=== PATIENT | female | born 1945 | race Caucasian/White ===

== ENCOUNTER 2022-09-25 13:08 | Inpatient (IN) | payer MEDICARE, BC ==
[~2022-09-25] VITALS: Ht 157.5 cm; Wt 53.7 kg
--- NOTE | 2022-09-25 13:16 | NUR ---
BIB RA[facility], TRIPPED ON THE DOORWAY AND FELL. PT HAS RIGHT HIP PAIN SLIGHT ROTATION (OUTWARD) AND SHORTENING. PT VITALS ARE WITHIN NORMAL LIMITS. AWAITING MD SCHULTZ.
[2022-09-25] MEDS ORDERED: ACETAMINOPHEN ES 500 MG TABLET PO ONE (13:30)
[2022-09-25] MEDS ORDERED: ACETAMINOPHEN ES 500 MG TABLET ONE (13:31)
--- NOTE | 2022-09-25 13:48 | NUR ---
X RAY AT BEDSIDE
[2022-09-25] MEDS ORDERED: ASPI-1420 PO (14:15)
[2022-09-25] MEDS ORDERED: FLUT10.62 INH (14:15)
[2022-09-25] MEDS ORDERED: LEVO88TA71 PO (14:15)
[2022-09-25] MEDS ORDERED: CHOL100043 PO (14:15)
[2022-09-25] MEDS ORDERED: MONT10TA22 PO (14:15)
[2022-09-25] MEDS ORDERED: METF-837 PO (14:15)
[2022-09-25] MEDS ORDERED: FERR325T23 PO (14:15)
[2022-09-25] MEDS ORDERED: SITA100T PO (14:15)
[2022-09-25] MEDS ORDERED: FLUT16SP16 (14:15)
[2022-09-25] MEDS ORDERED: FLUT1BLS IH (14:15)
[2022-09-25] MEDS ORDERED: VENL150C58 PO (14:15)
[2022-09-25] MEDS ORDERED: CITA20TA16 PO (14:15)
[2022-09-25] MEDS ORDERED: ATOR40TA PO (14:15)
[2022-09-25] MEDS ORDERED: ONDANSETRON HCL/PF - ER 4 MG/2 ML VIAL IV ONE (15:00)
[2022-09-25] MEDS ORDERED: MORPHINE SULFATE INJ 2 MG/ML DISP.SYRIN IV ONE ×3 (15:00→19:00)
[2022-09-25] MEDS ORDERED: ONDANSETRON HCL/PF 4 MG/2 ML VIAL ONE (15:14)
[2022-09-25] MEDS ORDERED: MORPHINE SULFATE INJ 4 MG/ML DISP.SYRIN ONE ×3 (15:14→18:56)
--- NOTE | 2022-09-25 15:30 | NUR ---
PAGED DR. BARRAGAN AWAITING A CALL BACK
--- NOTE | 2022-09-25 15:40 | NUR ---
COVID SWAB TAKEN AND SENT TO LAB
--- NOTE | 2022-09-25 15:42 | NUR ---
COVID TEST COLLECTED AND SENT
--- NOTE | 2022-09-25 15:45 | NUR ---
PT TAKEN TO CT [facility]IA [facility]
[2022-09-25 15:56] LABS: BASOPHILS % (AUTO) 0.2 % (0.0-2.0); EOSINOPHILS % (AUTO) 1.4 % (0.0-6.0); HEMATOCRIT 39 % (33-45); HEMOGLOBIN 12.8 g/dL (11.5-14.8); LYMPHOCYTES # (AUTO) 1.5 K/uL (0.8-4.8); LYMPHOCYTES % (AUTO) 13.7 % (20.0-44.0); MEAN CORPUSCULAR HGB CONC 33 g/dl (31.0-36.0); MEAN CORPUSCULAR VOLUME 91 fL (82-100); MONOCYTES # (AUTO) 0.6 K/uL (0.1-1.30); MONOCYTES % (AUTO) 5.7 % (2.0-12.0); NEUTROPHILS # (AUTO) 8.7 K/uL (1.8-8.9); PLATELET COUNT (AUTO) 288 K/uL (150-450); RED BLOOD CELL COUNT(AUTO) 4.34 MIL/uL (4.0-5.2)
[2022-09-25 16:14] LABS: CALCIUM, SERUM 9.1 mg/dL (8.5-10.1); CREATININE 0.8 mg/dL (0.6-1.3)
[2022-09-25] MEDS ORDERED: INSU100I24 SQ (16:28)
[2022-09-25] MEDS ORDERED: VENL75CA62 PO (16:28)
--- NOTE | 2022-09-25 16:52 | NUR ---
TELLY- SON [phone]
--- NOTE | 2022-09-25 19:41 | NUR ---
Timbo AOx4, able toexpress concerns. No signs of distress or discomfort, states it is hard for her to get in a comfortable position due to her fall. Discussed plan of care, timbo verbalized agreement.
--- NOTE | 2022-09-25 19:51 | NUR ---
Report given to Luz LOPEZ 3W, patient ready for trasfer.
[2022-09-25 20:30] VITALS: BP 138/79
[2022-09-25] MEDS ORDERED: ACETAMINOPHEN 325 MG TABLET PO PRN (20:30)
[2022-09-25] MEDS ORDERED: IV NS 0.9% 1,000 ML IV PRN (20:30)
[2022-09-25] MEDS ORDERED: ONDANSETRON HCL/PF 4 MG/2 ML VIAL IVP PRN (20:30)
[2022-09-25] MEDS ORDERED: DEXTROSE 50%-WATER 50 ML DISP.SYRIN IV PRN (20:30)
[2022-09-25] MEDS: MORPHINE SULFATE INJ 2 MG/ML DISP.SYRIN IV PRN (21:08)
--- NOTE | 2022-09-25 21:11 | NUR ---
bill rn note-- pain management pateint c/o 01/04 pain on her rt. hip. Given Morphine 2mg as ordered PRN. will re-assess.
[2022-09-25] MEDS: PANTOPRAZOLE 40 MG VIAL IV SCH (21:33)
[2022-09-25] MEDS: BLOOD SUGAR DIAGNOSTIC 1 EACH STRIP IN SCH (21:42)
[2022-09-25] MEDS: INSULIN REGULAR, HUMAN 100 UNIT/ML 3 ML VIAL SQ PRN (21:43)
[2022-09-26] VITALS (7 sets, daily range): BP systolic 103–148; BP diastolic 52–91
[2022-09-26] MEDS: ALBUTEROL FS 2.5 MG/3 ML VIAL.NEB NEB SCH ×5 (01:30→19:30)
--- NOTE | 2022-09-26 02:04 | NUR ---
ADMISSION NOTES pATIENT BROUGHT UP IN UNIT AT 1999 ACCOMPANIED BY 1 ER PERSONNEL VIA [facility]. PATIENT IS A/OX4. NO S/S OF APPARENT DISTRESS ON ROOM AIR. C/O 9/10 PAIN ON HER RT. HIP S/P FALL. PER PATIENT, SHE HAD AN ADVANCED DIRECTIVE AND THAT SHE IS DNR/DNI, TO BRING PAPERWORKS, AGREEABLE TO BE FULL CODE FOR NOW UNTIL ADVANCED DIRECTIVE ON FILE. PATIENT HAD L. AC #22G INTACT AND PATENT-- STARTED ON NS @75MLS/HR ORDERED. NEW ID BAND ON PATIENT. BELONGINGS CHECKED AND SIGNED FOR. SKIN ASSESSMENT DONE.PATIENT DENIES SMOKING NOR DRINKING ALCOHOL. AND IS UP-TO-DATE WITH HER VACCINATIONS, INCLUDING COVID. PATIENT ORIENTED IN THE UNIT AND THE USE OF CALL LIGHT, V/S TAKEN AND CHARTED. SAFETY IN PLACE-- BED IN LOWEST, LOCKED POSITION, CALL LIGHT WITHIN REACH, RAILS UP x2. PATIENT IS FOR ORTHOPEDIC CONSULT. AWARE OF NPO STATUS. WILL CONTINUE WITH PAIN MANAGEMENT FOR PATIENT.
[2022-09-26] MEDS: MORPHINE SULFATE INJ 2 MG/ML DISP.SYRIN IV PRN ×3 (04:03→12:16)
--- NOTE | 2022-09-26 04:03 | NUR ---
noc rn note- pain management Patient c/o 12/04 pain on her rt. hip. Given morphine 2mg as ordered PRN. will re-assess.
--- NOTE | 2022-09-26 05:06 | NUR ---
noc rn note After 8 hours being admitted in unit patient has no urine output. per patient she is trying to pee and to quote "I'm telling my mind to pee but it cannot". feels fullness. hard bladder upon palpation. bladder scan showing 509 ml of uo. patient zeny remember if she has any history of urinary retention. massaged Selina Coelho and hospitalist ordered Quiles catheter insertion. inserted 16fr. 500mls out right away. will cont. to monitor,.
--- NOTE | 2022-09-26 05:39 | NUR ---
EKG Completed, results given to geomorphology teacher Morenita. RT was not aware patient came up to floor after report with randy chu due.
[2022-09-26 06:27] LABS: BASOPHILS % (AUTO) 0.4 % (0.0-2.0); EOSINOPHILS % (AUTO) 3.7 % (0.0-6.0); HEMATOCRIT 39 % (33-45); HEMOGLOBIN 12.5 g/dL (11.5-14.8); LYMPHOCYTES # (AUTO) 0.9 K/uL (0.8-4.8); LYMPHOCYTES % (AUTO) 9.8 % (20.0-44.0); MEAN CORPUSCULAR HGB CONC 32 g/dl (31.0-36.0); MEAN CORPUSCULAR VOLUME 93 fL (82-100); MONOCYTES # (AUTO) 0.6 K/uL (0.1-1.30); MONOCYTES % (AUTO) 6.1 % (2.0-12.0); NEUTROPHILS # (AUTO) 7.7 K/uL (1.8-8.9); PLATELET COUNT (AUTO) 255 K/uL (150-450); RED BLOOD CELL COUNT(AUTO) 4.22 MIL/uL (4.0-5.2); WHITE BLOOD COUNT (AUTO) 9.6 K/uL (4.3-11.0)
[2022-09-26] MEDS: BLOOD SUGAR DIAGNOSTIC 1 EACH STRIP IN SCH ×4 (06:46→22:14)
[2022-09-26] MEDS: INSULIN REGULAR, HUMAN 100 UNIT/ML 3 ML VIAL SQ PRN ×2 (06:46→22:15)
[2022-09-26 06:48] LABS: CALCIUM, SERUM 8.7 mg/dL (8.5-10.1); CREATININE 0.8 mg/dL (0.6-1.3); MAGNESIUM 1.9 mg/dL (1.8-2.4); PHOSPHORUS 4.6 mg/dL (2.5-4.9); POTASSIUM 4.4 mmol/L (3.5-5.1)
--- NOTE | 2022-09-26 07:15 | NUR ---
bill rn closing note Patient in bed, a/ox2, no s/s of apparent distress on 1lpm of o2 via nc. pain managed with medication. all needs attended. all scheduled medications administered. safety kept in place throughout shift. will endorse to morning shift rn for continuity of patient care. Addendum: 09/26/22 at 0722 by BRIGIDO RICKETTS RN disregard. wrong patient.
--- NOTE | 2022-09-26 07:23 | NUR ---
MS RN OPENING NOTES RECEIVED PATIENT RESTING IN BED, ALERT/ ORIENTED X 4, ON ROOM AIR WITH EVEN AND UNLABORED BREATHING. WITH IV ACCESS ON LEFT AC G#22 WITH NS @ 75ML /HR . IV SITE PATENT AND NO SIGNS OF INFILTRATION. RESIDENT ON NPO SINCE POST MIDNIGHT FOR POSSIBLE SURGERY R/T HIP FRACTURE. SAFETY MEASURES PROVIDED: KEEP BED AT LOW , CALL LIGHT WITHIN EASILY REACH, AND BED LOCK. WILL CONTINUE WITH THE PLAN OF CARE.
--- NOTE | 2022-09-26 07:23 | NUR ---
noc rn closing note Patient in bed, a/ox4, forgetful, no s/s of apparent distress on room air. pain managed with medication. all needs attended. all scheduled medications administered. safety kept in place throughout shift. Endorsed to morning shift glendy Rodarte for continuity of patient care. Patient is for Ortho consult.
[2022-09-26] MEDS: BUDESONIDE RESPULE INH 0.5 MG/2 ML AMPUL.NEB NEB SCH ×2 (07:34→15:39)
[2022-09-26] MEDS: LEVOTHYROXINE SODIUM 88 MCG TABLET PO SCH (08:13)
[2022-09-26] MEDS: PANTOPRAZOLE 40 MG VIAL IV SCH (08:13)
[2022-09-26] MEDS: LINAGLIPTIN 5 MG TABLET PO SCH (08:14)
[2022-09-26] MEDS: CITALOPRAM HYDROBROMIDE 10 MG TABLET PO SCH (08:14)
[2022-09-26] MEDS: VENLAFAXINE XR 150 MG CAP.SR.24H PO SCH (08:14)
[2022-09-26] MEDS: ASPIRIN EC 81 MG TABLET.DR PO SCH (08:15)
[2022-09-26] MEDS: FLUTICASONE PROPIONATE 16 GM BOTTLE NS SCH (08:19)
[2022-09-26] MEDS ORDERED: FERROUS SULFATE (325 MG) 325 MG/TAB TABLET PO SCH (09:00)
[2022-09-26] MEDS ORDERED: FLUTICASONE/VILANTEROL 1 EACH BLST.W.DEV IH SCH (09:00)
[2022-09-26 10:38] LABS: THYROID STIMULATING HORMONE 2.037 uIU/mL (0.358-3.74)
[2022-09-26] MEDS ORDERED: IV D5/ 0.9% NACL 1,000 ML IV ONE (11:00)
[2022-09-26] MEDS ORDERED: BUPIVACAINE 0.25% 75 MG/30 ML VIAL ONE (15:07)
[2022-09-26] MEDS ORDERED: ANESTHESIA TRAY IN PYXIS 1 EA TRAY MC ONE (15:07)
[2022-09-26] MEDS ORDERED: KETAMINE HCL (500MG/10ML) 50 MG/ML VIAL ONE (17:54)
[2022-09-26] MEDS ORDERED: HYDROMORPHONE INJ 2 MG/ML DISP.SYRIN ONE (17:54)
[2022-09-26] MEDS ORDERED: FENTANYL PF 100MCG/2ML AMPUL ONE (17:54)
[2022-09-26] MEDS: ATORVASTATIN 40 MG TABLET PO SCH (18:00)
[2022-09-26] MEDS: MONTELUKAST SODIUM (10MG) 10 MG TABLET PO SCH (18:00)
[2022-09-26] MEDS: VENLAFAXINE XR 75 MG CAP.SR.24H PO SCH (18:00)
--- NOTE | 2022-09-26 18:00 | NUR ---
MS RN CLOSING NOTES PATIENT TRANSFERRED TO OR FOR SCHEDULED SURGERY OF RIGHT HIP HEMIARTHROPLASTY VERSUS RIGHT HIP TOTAL ARTHROPLASTY. PATIENT IN STABLE CONDITION, NOT IN ANY FORM OF DISTRESS. WILL ENDORSE TO INCOMING NURSE ACCORDINGLY.
[2022-09-26] MEDS ORDERED: HYDROCORTISONE SOD SUCCINATE 100 MG/2 ML VIAL ONE (18:04)
[2022-09-26] MEDS ORDERED: CLINDAMYCIN 900 MG/6 ML VIAL ONE (18:05)
[2022-09-26] MEDS ORDERED: TRANEXAMIC ACID 1,000 MG/10 ML VIAL ONE (18:54)
[2022-09-26] MEDS ORDERED: POLYMYXIN B SULFATE 500,000 UNITS ONE (18:54)
[2022-09-26] MEDS ORDERED: BUPIVACAINE 0.5 % PF 150 MG/30 ML VIAL ONE (18:54)
[2022-09-26] MEDS ORDERED: DOCUSATE SODIUM 100 MG CAPSULE PO PRN (20:30)
[2022-09-26] MEDS ORDERED: HYDROCODONE/APAP 5/325MG TABLET PO PRN (20:30)
[2022-09-26] MEDS ORDERED: MORPHINE SULFATE INJ 4 MG/ML DISP.SYRIN IV PRN (20:30)
[2022-09-26] MEDS ORDERED: ACETAMINOPHEN 325 MG TABLET PO PRN (20:30)
[2022-09-26] MEDS ORDERED: DOCUSATE SODIUM 250 MG CAPSULE PO PRN (20:30)
[2022-09-26] MEDS: ENOXAPARIN SODIUM 40 MG/0.4 ML DISP.SYRIN SQ SCH (21:00)
[2022-09-26] MEDS ORDERED: SENNOSIDES 8.6 MG TABLET PO PRN ×2 (21:00)
[2022-09-26] MEDS ORDERED: ONDANSETRON HCL/PF 4 MG/2 ML VIAL IVP PRN (21:00)
[2022-09-26] MEDS ORDERED: BISACODYL SUPP (10 MG) 10 MG/SUPP.RECT SUPP.RECT RC PRN (21:00)
--- NOTE | 2022-09-26 21:00 | NUR ---
noc rn note IV D5NS @75mls/hr resumed as ordered by Surgeon.
--- NOTE | 2022-09-26 21:00 | NUR ---
noc rn note Patient back in unit at this time, still groggy from anaesthesia patient is alert and answer simple questions no s/s of apparent distress, put in 2lpm of o2 via nc-- patient encouraged deep breathing. denies pain at this time. dressing on rt. hip clean, dry, intact. V/S as follows: 103/53, hr118 92% room air, rr- 17, temp. 98.4. will continue to monitor q 15 for the next hour.
--- NOTE | 2022-09-26 21:30 | NUR ---
noc rn note- non-admin patient s/p hemiarthroplasty without it being 12 hours hence Lovenox non administered.
[2022-09-26 21:39] LABS: HEMOGLOBIN 10.9 g/dL (11.5-14.8)
--- NOTE | 2022-09-26 22:15 | NUR ---
noc rn note- non admin blood sugar 212mg/dL per patient she doesn't take insulin at night and d/t patient being under anaesthesia still and not eating, insulin non-administered. will continue to monitor.
[2022-09-27] MEDS: ALBUTEROL FS 2.5 MG/3 ML VIAL.NEB NEB SCH ×4 (01:30→20:15)
[2022-09-27] MEDS: CLINDAMYCIN 600 MG in IV D5W 50 ML IV SCH ×3 (02:16→17:17)
--- NOTE | 2022-09-27 03:30 | NUR ---
noc rn note-pain management patient c/o 9/10 pain on her rt. hip s/p surgery. given Morphine 4mg as ordered PRN. will re-assess.
[2022-09-27] MEDS: MORPHINE SULFATE INJ 2 MG/ML DISP.SYRIN IV PRN (05:15)
--- NOTE | 2022-09-27 05:15 | NUR ---
noc rn note- pain management Morphine 2mg Q4 ineffective. patient still c/o 9/10 pain on her rt. hip surgery site. Given another dose of Morphine 2mg Q2 as ordered PRN for when Q4 ineffective. Patient teaching done about risk and benefits. Patient acknowledged. will re-assess.
[2022-09-27 07:00] VITALS: BP 140/76
[2022-09-27] MEDS: BLOOD SUGAR DIAGNOSTIC 1 EACH STRIP IN SCH ×4 (07:00→21:07)
[2022-09-27] MEDS: INSULIN REGULAR, HUMAN 100 UNIT/ML 3 ML VIAL SQ PRN ×4 (07:01→21:07)
[2022-09-27] MEDS: BUDESONIDE RESPULE INH 0.5 MG/2 ML AMPUL.NEB NEB SCH ×2 (07:23→15:56)
--- NOTE | 2022-09-27 07:30 | NUR ---
noc rn closing needs attended. Report given to Argelia morning shift RN for continuity of patient care.
[2022-09-27] MEDS: LEVOTHYROXINE SODIUM 88 MCG TABLET PO SCH (07:53)
[2022-09-27] MEDS: LINAGLIPTIN 5 MG TABLET PO SCH (09:49)
[2022-09-27] MEDS: PANTOPRAZOLE 40 MG VIAL IV SCH (09:49)
[2022-09-27] MEDS: VENLAFAXINE XR 150 MG CAP.SR.24H PO SCH (09:50)
[2022-09-27] MEDS: ASPIRIN EC 81 MG TABLET.DR PO SCH (09:50)
[2022-09-27] MEDS: CITALOPRAM HYDROBROMIDE 10 MG TABLET PO SCH (09:50)
[2022-09-27] MEDS: FLUTICASONE PROPIONATE 16 GM BOTTLE NS SCH (09:54)
--- NOTE | 2022-09-27 10:59 | NUR ---
MS RN OPENING NOTES RECEIVED PATIENT AWAKE IN BED, ALERT/ ORIENTED X 4, ON ROOM AIR WITH EVEN AND NON-LABORED BREATHING. WITH IV ACCESS ON LEFT AC G#22 WITH NS @ 75ML /HR . IV SITE PATENT, INTACT AND NO SIGNS OF INFILTRATION. WITH WANG CATHETER ON GRAVITY DRAIN, SAFETY MEASURES PROVIDED: BED AT LOWEST POSITION , CALL LIGHT WITHIN REACH, AND BED LOCKED. WILL CONTINUE WITH THE PLAN OF CARE.
--- NOTE | 2022-09-27 13:32 | NUR ---
RN NOTES: PATIENT STATED THAT MORPHINE IV IS NOT EFFECTIVE. INFORMED DR BARRAGAN ABOUT THE SITUATION. DR BARRAGAN ORDERED DC ALL MORPHINE IV PRN ORDERS AND START DILAUDID 0.5 MG IV Q 4HRS PRN FOR BREAK THROUGH PAIN. ORDERS NOTED AND CARRIED OUT. INFORMED PT.
[2022-09-27] MEDS: HYDROCODONE/APAP 5/325MG TABLET PO PRN (14:01)
--- NOTE | 2022-09-27 14:01 | NUR ---
PAIN MANAGEMENT: NORCO 5-325 (2TABS) PT COMPLAINED PAIN 7/10, NORCO 5-325 2 TABS GIVEN AND WITH SIPS OF WATER.
--- NOTE | 2022-09-27 14:31 | NUR ---
RN NOTES: PATIENT STATED SHE FELT BETTER WITH THE PAIN MEDS NORCO 5-325 2 TABS. INFORMED THE PATIENT TO LET US KNOW IF SHE STILL HAVE PAIN, PT VERBALIZED UNDERSTANDING.
[2022-09-27 16:00] VITALS: BP 120/61
[2022-09-27] MEDS: ATORVASTATIN 40 MG TABLET PO SCH (17:13)
[2022-09-27] MEDS: MONTELUKAST SODIUM (10MG) 10 MG TABLET PO SCH (17:14)
[2022-09-27] MEDS: VENLAFAXINE XR 75 MG CAP.SR.24H PO SCH (17:17)
--- NOTE | 2022-09-27 18:33 | NUR ---
MS RN CLOSING NOTES PATIENT AWAKE IN BED, ALERT/ ORIENTED X 4, ON ROOM AIR WITH EVEN AND NON-LABORED BREATHING. WITH IV ACCESS ON LEFT AC G#22. IV SITE PATENT, INTACT WITH NO SIGNS OF INFILTRATION. WITH COMPLAINTS OF PAIN ,PRN MEDS GIVEN.WITH WANG CATHETER,DRAINING TO CLEAR, YELLOW COLORED URINE. SAFETY MEASURES PROVIDED: BED AT LOWEST POSITION , CALL LIGHT WITHIN REACH, AND BED LOCKED. WILL ENDORSE TO PM SHIFT FOR ROSSY.
--- NOTE | 2022-09-27 19:46 | NUR ---
RN OPENING NOTE PATIENT AWAKE IN BED. A/OX4. NO S/S OF DISTRESS, BREATHING WITHOUT DIFFICULTY ON ROOM AIR. LAC #22 INTACT AND PATENT W/ D5NS 75ML/HR. SAFETY MEASURES IN PLACE: BED LOCKED AND AT LOWEST POSITION, RAILS UP X2, CALL HERBERT WITHIN REACH. WILL CONTINUE TO MONITOR PATIENT. Addendum: 09/27/22 at 1951 by DOROTHY RIOS RN CORRECTION: IV IS SL
[2022-09-27 20:00] VITALS: BP_SYST 119; BP_SYST 99; BP_DIAS 53; BP_DIAS 67
[2022-09-27] MEDS: ENOXAPARIN SODIUM 40 MG/0.4 ML DISP.SYRIN SQ SCH (21:05)
--- NOTE | 2022-09-27 21:35 | NUR ---
RN NOTE WANG CATH REMOVED PER POST-OP ORDERS. DISPOSED OF PROPERLY PER PROTOCOL. PATIENT EDUCATION GIVEN ON REASON FOR REMOVAL, AND NEW GOAL OF URINATING WITHOUT WANG IN PLACE. PATIENT O/W STABLE; WILL CONTINUE TO MONITOR PATIENT.
[2022-09-28] MEDS: HYDROMORPHONE 1 MG/1 ML DISP.SYRIN IV PRN (01:18)
[2022-09-28] MEDS: ALBUTEROL FS 2.5 MG/3 ML VIAL.NEB NEB SCH ×4 (01:30→20:29)
--- NOTE | 2022-09-28 02:20 | NUR ---
RT NOTE PATIENT REFUSING BREATHING TX AT THIS TIME. NO SIGNS OF RESPIRATORY DISTRESS NOTED. PATIENT IS TOLERATING ROOM AIR. WILL CONTINUE TO MONITOR PATIENT.
[2022-09-28 06:10] LABS: BASOPHILS % (AUTO) 0.3 % (0.0-2.0); EOSINOPHILS % (AUTO) 6.1 % (0.0-6.0); HEMATOCRIT 28 % (33-45); HEMOGLOBIN 9.1 g/dL (11.5-14.8); LYMPHOCYTES # (AUTO) 1.7 K/uL (0.8-4.8); LYMPHOCYTES % (AUTO) 18.2 % (20.0-44.0); MEAN CORPUSCULAR HGB CONC 33 g/dl (31.0-36.0); MEAN CORPUSCULAR VOLUME 92 fL (82-100); MONOCYTES # (AUTO) 0.9 K/uL (0.1-1.30); MONOCYTES % (AUTO) 9.4 % (2.0-12.0); NEUTROPHILS # (AUTO) 6.1 K/uL (1.8-8.9); PLATELET COUNT (AUTO) 217 K/uL (150-450); RED BLOOD CELL COUNT(AUTO) 3.04 MIL/uL (4.0-5.2); WHITE BLOOD COUNT (AUTO) 9.2 K/uL (4.3-11.0)
[2022-09-28] MEDS: INSULIN REGULAR, HUMAN 100 UNIT/ML 3 ML VIAL SQ PRN ×3 (06:33→21:03)
[2022-09-28] MEDS: BLOOD SUGAR DIAGNOSTIC 1 EACH STRIP IN SCH ×4 (06:35→21:02)
[2022-09-28 06:43] LABS: CALCIUM, SERUM 7.9 mg/dL (8.5-10.1); CARBON DIOXIDE 25 mmol/L (21-32); CHLORIDE 104 mmol/L (98-107); CREATININE 0.9 mg/dL (0.6-1.3); GLUCOSE 214 mg/dL (74-106); MAGNESIUM 1.8 mg/dL (1.8-2.4); PHOSPHORUS 2.4 mg/dL (2.5-4.9); POTASSIUM 3.7 mmol/L (3.5-5.1); SODIUM SERUM 137 mmol/L (136-145); UREA NITROGEN, BLOOD 9 mg/dL (7-18)
--- NOTE | 2022-09-28 06:47 | NUR ---
RN CLOSING NOTE PATIENT AWAKE IN BED. A/OX4. NO S/S OF DISTRESS, BREATHING WITHOUT DIFFICULTY ON ROOM AIR. LAC #22 SL INTACT AND PATENT. SAFETY MEASURES IN PLACE: BED LOCKED AND AT LOWEST POSITION, RAILS UP X2, CALL HERBERT WITHIN REACH. WILL ENDORSE TO NEXT SHIFT FOR ROSSY.
[2022-09-28 07:00] VITALS: BP 127/81
[2022-09-28] MEDS: BUDESONIDE RESPULE INH 0.5 MG/2 ML AMPUL.NEB NEB SCH ×2 (07:27→16:08)
[2022-09-28] MEDS: LEVOTHYROXINE SODIUM 88 MCG TABLET PO SCH (07:39)
--- NOTE | 2022-09-28 08:01 | NUR ---
RN OPENING NOTES RECEIVED PATIENT AWAKE IN BED. A/OX4. NO S/S OF DISTRESS, BREATHING WITHOUT DIFFICULTY ON ROOM AIR. LAC #22 SL INTACT AND PATENT. SAFETY MEASURES IN PLACE: BED LOCKED AND AT LOWEST POSITION, RAILS UP X2, CALL HERBERT WITHIN REACH. WILL CONTINUE TO MONITOR AND ASSIST DURING SHIFT.
[2022-09-28] MEDS: HYDROCODONE/APAP 5/325MG TABLET PO PRN ×2 (08:28→16:34)
[2022-09-28] MEDS: CITALOPRAM HYDROBROMIDE 10 MG TABLET PO SCH (08:29)
[2022-09-28] MEDS: ASPIRIN EC 81 MG TABLET.DR PO SCH (08:29)
[2022-09-28] MEDS: VENLAFAXINE XR 150 MG CAP.SR.24H PO SCH (08:31)
[2022-09-28] MEDS: PANTOPRAZOLE 40 MG/PACK PACK PO SCH (08:31)
[2022-09-28] MEDS: LINAGLIPTIN 5 MG TABLET PO SCH (08:31)
[2022-09-28] MEDS: FLUTICASONE PROPIONATE 16 GM BOTTLE NS SCH (08:31)
--- NOTE | 2022-09-28 11:43 | NUR ---
RN NOTES BLOOD SUGAR CHECKED, 149 MG/DL
[2022-09-28 16:00] VITALS: BP 137/79
[2022-09-28] MEDS ORDERED: K PHOS NEUTRAL 250 MG TABLET PO ONE (16:00)
--- NOTE | 2022-09-28 16:34 | NUR ---
RN NOTES PATIENT COMPLAINED OF PAIN 7/10 PER PAIN SCALE. PRN MEDS GIVEN FOR PAIN
[2022-09-28] MEDS: VENLAFAXINE XR 75 MG CAP.SR.24H PO SCH (17:31)
[2022-09-28] MEDS: MONTELUKAST SODIUM (10MG) 10 MG TABLET PO SCH (17:31)
[2022-09-28] MEDS: ATORVASTATIN 40 MG TABLET PO SCH (17:31)
--- NOTE | 2022-09-28 18:40 | NUR ---
RN CLOSING NOTES: PATIENT AWAKE IN BED. A/OX4. NO S/S OF DISTRESS, BREATHING WITHOUT DIFFICULTY ON ROOM AIR. LAC #22 SL INTACT AND PATENT. SAFETY MEASURES IN PLACE: BED LOCKED AND AT LOWEST POSITION, RAILS UP X2, CALL HERBERT WITHIN REACH. WILL ENDORSE TO PM SHIFT FOR ROSSY.
--- NOTE | 2022-09-28 19:00 | NUR ---
RN OPENING NOTE RECEIVED PT AWAKE IN BED W/ FAMILY AND CG @ BEDSIDE. PT IS A/O X 4, ABLE TO MAKE NEEDS KNOWN. PT IS IN RA TOLERATING WELL, BREATHING EVEN AND UNLABORED @ THIS TIME. PT IV PRESENT IN LEFT AC #22G SALINE LOCK, PATENT, INTACT AND FLUSHES WELL W/ NO S&SX OF INFILTRATION @ SITE NOTED. SAFETY MEASURES IS IN PLACE. BED IN LOWEST AND LOCKED POSITION. SIDE RAILS X 2. BEDSIDE TABLE AND CALL LIGHT IS EASY REACH. BED ALARM IS ON. WILL CONTINUE TO MONITOR PT ACCORDINGLY.
[2022-09-28 20:45] VITALS: BP 140/78
[2022-09-28] MEDS: ENOXAPARIN SODIUM 40 MG/0.4 ML DISP.SYRIN SQ SCH (20:50)
[2022-09-29] MEDS: HYDROMORPHONE 1 MG/1 ML DISP.SYRIN IV PRN ×2 (01:36→08:35)
[2022-09-29] MEDS: ALBUTEROL FS 2.5 MG/3 ML VIAL.NEB NEB SCH ×3 (02:23→14:46)
[2022-09-29] MEDS: BLOOD SUGAR DIAGNOSTIC 1 EACH STRIP IN SCH ×2 (06:39→11:54)
[2022-09-29] MEDS: INSULIN REGULAR, HUMAN 100 UNIT/ML 3 ML VIAL SQ PRN ×2 (06:39→11:57)
--- NOTE | 2022-09-29 06:40 | NUR ---
HELD INSULIN REGULAR D/T PT BLOOD GLUCOSE OF 124.
--- NOTE | 2022-09-29 06:44 | NUR ---
RN CLOSING NOTE PT AWAKE & RESTING COMFORTABLY IN BED. PT IS A/O X 4, RESPONSIVE AND FOLLOWS VERBAL COMMAND. PT IS IN RA W/ NO S&SX OF RESPIRATORY DISTRESS @ THIS TIME. PT IV PRESENT IN LEFT AC #22G SALINE LOCK, PATENT, INTACT AND FLUSHES WELL W/ NO S&SX OF INFILTRATION @ SITE NOTED. SAFETY MEASURES IS IN PLACE. BED IN LOWEST ABND LOCKED POSITION. SIDE RAILS X 2. BEDSIDE TABLE AND CALL LIGHT IS EASY REACH. BED ALARM IS ON. WILL ENDORSE TO THE NEXT SHIFT FOR ROSSY.
--- NOTE | 2022-09-29 07:20 | NUR ---
MS RN OPENING NOTES RECEIVED PATIENT RESTING IN BED, ALERT/ ORIENTED X 4, ON ROOM AIR WITH EVEN AND UNLABORED BREATHING. WITH IV ACCESS ON RIGHT FOREARM G#22 ON SALINE LOCK. IV SITE PATENT AND NO SIGNS OF INFILTRATION. RESIDENT WAS S/P RIGHT HIP HEMIARTHROPLASTY WITH RIGHT HIP SURGICAL INCISION, SKIN INTACT, NO SIGN AND SYMPTOMS OF INFECTION NOTED. NO COMPLAIN OF PAIN AT THIS TIME. SAFETY MEASURES PROVIDED: BED AT LOW POSITION AND LOCK AND CALL LIGHT WITHIN EASILY REACH. WILL CONTINUE WITH THE PLAN OF CARE.
[2022-09-29] MEDS: LEVOTHYROXINE SODIUM 88 MCG TABLET PO SCH (07:50)
[2022-09-29 08:00] VITALS: BP 154/75
[2022-09-29] MEDS: BUDESONIDE RESPULE INH 0.5 MG/2 ML AMPUL.NEB NEB SCH ×2 (08:27→14:46)
--- NOTE | 2022-09-29 08:39 | NUR ---
RN NOTES PATIENT COMPLAINED OF 8/10 RIGHT HIP PAIN, GIVEN DILAUDID 0.5 MG IVP, WILL CONTINUE TO MONITOR.
[2022-09-29] MEDS: PANTOPRAZOLE 40 MG/PACK PACK PO SCH (09:10)
[2022-09-29] MEDS: LINAGLIPTIN 5 MG TABLET PO SCH (09:11)
[2022-09-29] MEDS: VENLAFAXINE XR 150 MG CAP.SR.24H PO SCH (09:11)
[2022-09-29] MEDS: CITALOPRAM HYDROBROMIDE 10 MG TABLET PO SCH (09:11)
[2022-09-29] MEDS: ASPIRIN EC 81 MG TABLET.DR PO SCH (09:11)
[2022-09-29] MEDS: FLUTICASONE PROPIONATE 16 GM BOTTLE NS SCH (09:13)
[2022-09-29] MEDS ORDERED: ENOX40DI SQ (09:15)
--- NOTE | 2022-09-29 15:53 | NUR ---
MS CHAPLAIN NOTE PT DISCHARGED TO [facility] IN STABLE CONDITION, PT IS AOX4, ABLE TO MAKE NEEDS KNOWN, BREATHING WITHOUT ANY DIFFICULTY ON ROOM AIR, SATURATING WELL AT 98%. NOT IN ANY FORM OF ACUTE DISTRESS. DENIED PAIN NOR DISCOMFORT, JUST ASKED FOR ICE PACK. VITAL SIGNS TAKEN, STABLE AND RECORDED. PT HAS RIGHT HIP INCISION WITH DRESSING C/D/I, NO BLEEDING NOTED. ALL BELONGINGS ACCOUNTED FOR, FORM SIGNED. DISCHARGE INSTRUCTIONS GIVEN TO JESSICA CORCORAN OF [facility]. IV ACCESS ON RIGHT FOREARM REMOVED, PRESSURE GAUZE APPLIED, NO BLEEDING NOTED. PT LEFT THE UNIT AT 1530 VIA HER GURNEY ACCOMPANIED BY 2 SINGE WINDER WITH AND CAREGIVER. MD AND CHARGE NURSE AWARE OF THE DISCHARGE.
== END 2022-09-29 15:30 | DRG 522 ==
LOC: ER 13:14 → MED 19:07
PROVIDERS: ADMIT Nurse Practitioner Acute Care; ATTEND Nurse Practitioner Acute Care
PROC: 0SRR0JZ Replacement of Right Hip Joint, Femoral Surface with Synthetic Substitute, Open Approach (ICD-10-PCS; principal; 2022-09-26)
DX: S72.011A Unspecified intracapsular fracture of right femur, initial encounter for closed fracture (principal); W01.0XXA Fall on same level from slipping, tripping and stumbling without subsequent striking against object, initial encounter; E03.9 Hypothyroidism, unspecified; E11.9 Type 2 diabetes mellitus without complications; E78.5 Hyperlipidemia, unspecified; Z20.822 Contact with and (suspected) exposure to COVID-19; Y92.511 Restaurant or cafe as the place of occurrence of the external cause; I10 Essential (primary) hypertension; Z88.0 Allergy status to penicillin; Z88.8 Allergy status to other drugs, medicaments and biological substances; Z88.1 Allergy status to other antibiotic agents; Z79.4 Long term (current) use of insulin; Z91.041 Radiographic dye allergy status; Z79.84 Long term (current) use of oral hypoglycemic drugs; Z79.82 Long term (current) use of aspirin; Z79.899 Other long term (current) drug therapy; Z66 Do not resuscitate; Z96.642 Presence of left artificial hip joint; Z79.51 Long term (current) use of inhaled steroids; F32.A Depression, unspecified; R33.9 Retention of urine, unspecified
CPT/HCPCS: 36415; 71045-TC; 73502; 73700-TC; 80048-TC; 80061-TC; 82728-TC; 82962-TC; 83540-TC; 83735-TC; 84100-TC; 84439-TC; 84443-TC; 85025-TC; 85027-TC; 87081-TC; 93307-TC; 94799-TC; 97110-TC; 97112-TC; 97116-TC; 97530-TC; A4217; A4223; A6209; C1776; C9113; C9803; G0378; J1100; J1170; J1650; J1720; J1815; J2270; J2405; J2704; J2765; J3010; J3490; J7030; J7042; J7050; J7060